=== PATIENT | female | born 1945 | race Caucasian/White ===

== ENCOUNTER 2016-11-29 14:14 | Outpatient (CLI) | payer MEDICARE | END 2016-11-29 14:15 | disposition home or self-care (01) | DX: M16.0 Bilateral primary osteoarthritis of hip (principal); M20.11 Hallux valgus (acquired), right foot; M20.12 Hallux valgus (acquired), left foot; M19.072 Primary osteoarthritis, left ankle and foot; M19.071 Primary osteoarthritis, right ankle and foot ==

== ENCOUNTER 2017-07-03 09:17 | Outpatient (CLI) | payer MEDICARE ==
[2017-07-03] MEDS ORDERED: BARIUM SULFATE 135 ML BOTTLE PO ONE (11:41)
[2017-07-03] MEDS ORDERED: BARIUM SULFATE 148 GM POWDER PO ONE (11:41)
--- NOTE | 2017-07-03 12:33 | XRAY Report ---
UPPER GI WITH SMALL BOWEL FOLLOW-THROUGH: 07/03/2017 CLINICAL INDICATION: Pain, gas. FINDINGS: Initial clerk travel reservations view of the abdomen demonstrates normal bowel gas pattern. Single and double contrast upper GI was performed, followed by small bowel follow through. The esophagus is normal in caliber. No esophageal ulceration, mass lesion, or stricturing is seen. Presbyesophagus is noted. There is a small hiatal hernia present, which produced gastroesophageal re flux throughout the course of the study. The stomach demonstrates a normal fold pattern. No gastric ulceration or mass lesion is present. The duodenal cap distends normally. The duodenal C-loop is u nremarkable. Contrast passes freely through jejunal and ileal loops, which demonstrate normal fold p atterns. No abnormal dilatation, separation, or stricturing of small bowel loops is seen. Oral cont rast reaches the ascending colon at 60 minutes. The terminal ileum appears unremarkable. IMPRESSION: 1. SLIDING HIATAL HERNIA, PRODUCING GASTROESOPHAGEAL REFLUX. 2. PRESBYESOPHAGUS. FLUOROSCOPY TIME: 2 minutes 59 seconds; 26 spot images obtained. 12:9:53 JOB #: [id number] EXT JOB #:[id number]
== END 2017-07-03 09:18 | disposition home or self-care (01) ==
LOC: DI 09:17
PROVIDERS: ATTEND Internal Medicine
DX: K22.8 Other specified diseases of esophagus (principal); K44.9 Diaphragmatic hernia without obstruction or gangrene
CPT/HCPCS: 74249; A9270

== ENCOUNTER 2017-11-06 11:27 | Outpatient (CLI) | payer MEDICARE ==
--- NOTE | 2017-11-07 09:08 | XRAY Report ---
EXAM: THREE VIEW BILATERAL FEET: 11/06/2017 CLINICAL INDICATION: Bilateral pain. COMPARISON: 11/29/2016. FINDINGS: AP, lateral, oblique views of the bilateral feet demonstrate stable bilateral hallux valgus and degenerative changes. There is no evidence of interval fracture or dislocation. No radiopaque foreign bodies appreciated in the soft tissues. IMPRESSION: STABLE BILATERAL HALLUX VALGUS AND DEGENERATIVE CHANGES. TD: 11/06/2017 16:13 [facility]
--- NOTE | 2017-11-07 09:10 | XRAY Report ---
EXAM: THREE VIEW BILATERAL HANDS: 11/06/2017 CLINICAL INDICATION: Bilateral hand pain. FINDINGS: AP, lateral, oblique views of the bilateral hands demonstrate mild arthritic changes of the metacarpophalangeal joints, right worse than left. There is no evidence of acute fracture or dislocation. No radiopaque foreign body is seen in the soft tissues. IMPRESSION: MILD ARTHRITIC CHANGES OF THE METACARPOPHALANGEAL JOINTS, RIGHT WORSE THAN LEFT, IN A PATTERN MORE COMPATIBLE WITH RHEUMATOID ARTHRITIS THAN OSTEOARTHRITIS. TD: 11/06/2017 16:16 [facility]
== END 2017-11-06 11:28 | disposition home or self-care (01) ==
LOC: DI.S 11:27
PROVIDERS: ATTEND Nurse Practitioner Family
DX: M79.641 Pain in right hand (principal); M79.671 Pain in right foot; M20.12 Hallux valgus (acquired), left foot; M20.11 Hallux valgus (acquired), right foot

== ENCOUNTER 2017-12-29 11:47 | Outpatient (CLI) | payer MEDICARE ==
--- NOTE | 2017-12-29 17:16 | XRAY Report ---
THREE VIEW BILATERAL ANKLES: 12/29/2017 CLINICAL INDICATION: Bilateral pain. FINDINGS: AP, lateral, and oblique views of the bilateral ankles demonstrate minimal osteoarthritis, with small osteophytes. There is no evidence of fracture or dislocation. No effusion is present. IMPRESSION: MINIMAL OSTEOARTHRITIS. TD: 12/29/2017 17:11
--- NOTE | 2017-12-29 17:16 | XRAY Report ---
TWO VIEW BILATERAL FEET: CLINICAL INDICATION: Pain. COMPARISON: 11/06/2017. FINDINGS: Frontal and lateral views of the bilateral feet demonstrate severe bilateral hallux valgus, stable from previous. There is no evidence of acute fracture. Osteoarthritic changes are stable. IMPRESSION: STABLE OSTEOARTHRITIS AND HALLUX VALGUS. TD: 12/29/2017 17:10
== END 2017-12-29 11:48 | disposition home or self-care (01) ==
LOC: DI 11:47
PROVIDERS: ATTEND Internal Medicine
DX: M19.072 Primary osteoarthritis, left ankle and foot (principal); M19.071 Primary osteoarthritis, right ankle and foot

== ENCOUNTER 2018-02-09 11:52 | Outpatient (CLI) | payer MEDICARE ==
[~2018-02-09 11:52] MED LIST: GADOBUTROL 10 MMOL/10 ML SYRINGE ONE
[2018-02-09 12:17] LABS: CREATININE 0.8 mg/dL (0.4-1.0)
[2018-02-09] MEDS ORDERED: GADOBUTROL 10 MMOL/10 ML SYRINGE IVP ONE (13:44)
--- NOTE | 2018-02-09 18:17 | MRI Report ---
EXAM: RIGHT ANKLE/HINDFOOT MRI WITHOUT AND WITH CONTRAST EXAM DATE: 02/09/2018 02:04 PM. CLINICAL HISTORY: Right ankle and right foot pain. COMPARISON: Right foot 2 views 12/29/2017. TECHNIQUE: Multiplanar, multisequence T1-weighted and fluid-sensitive sequences of the ankle before a nd after administration of intravenous contrast. IV contrast: 8.5 cc Gadavist. Other: None. FINDINGS: Bones: Edema is noted at the inferior lateral talus with the chondromalacia subtalar joint. Mild shea a tip of lateral malleolus. Possible small avulsed cortical fracture fragment lateral malleolus. Articular Cartilage: Focal chondromalacia posterior subtalar joint. Ligaments: The anterior talofibular ligament is intact. Tear of the proximal calcaneofibular ligament . The distal anterior tibia fibular ligament is intact. The deep and superficial deltoid and spring l igaments are intact. Anterior Tendons: The tibialis anterior, extensor hallucis longus, and extensor digitorum longus tend ons are unremarkable. Medial Tendons: Probable physiologic fluid posterior tibialis tendon sheath. Increased fluid proximal flexor digitorum longus tendon sheath 6 cm in length consistent with flexor digitorum longus tenosyn ovitis centered at the ankle joint and in proximity to the skin marker corresponding to the site of p ain. Lateral Tendons: The peroneus brevis and longus are unremarkable. Achilles Tendon: The Achilles tendon is unremarkable. Musculature: No edema or fatty atrophy. Other: Increased fluid dorsolateral talonavicular joint (image 20 series 701). Increased soft tissue or fluid and decreased fat signal tarsal sinus is suspicious for tarsal sinus syndrome (image 32 seri es 12,001). No plantar fasciitis. The subcutaneous tissues are unremarkable. No abscess or cellulitis . IMPRESSION: 1. Tenosynovitis flexor digitorum longus centered at the ankle joint corresponding to the area of int erest indicated by skin marker. 2. Tear of the proximal fibular calcaneal ligament with probable small avulsed lateral malleolus garrison ical fracture fragment. 3. 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 4. 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 [facility] MUSCULOSKELETAL RADIOLOGY SECTION Referring Provider Line: [phone] SITE ID: [id number]
== END 2018-02-09 11:53 | disposition home or self-care (01) ==
LOC: LAB 11:52
PROVIDERS: ATTEND Internal Medicine
DX: M65.871 Other synovitis and tenosynovitis, right ankle and foot (principal); S93.491A Sprain of other ligament of right ankle, initial encounter; M19.071 Primary osteoarthritis, right ankle and foot; R60.1 Generalized edema
CPT/HCPCS: 36415; 73720; 73723; 82565; A9585

== ENCOUNTER 2018-05-31 15:38 | Outpatient (CLI) | payer MEDICARE ==
--- NOTE | 2018-06-01 11:28 | XRAY Report ---
Procedure Date: 05/31/2018 Accession Number: [id number] / [id number] Procedure: XRS - Hips 3-4V BILAT CPT Code: FULL RESULT: EXAM: Hips 3-4V BILAT DATE: 05/31/2018 4:18 PM CLINICAL HISTORY: LOW BACK AND NECK Pain, pain IN RIGHT Hip, pelvic AN COMPARISON: Hip radiographs 11/29/2016. TECHNIQUE: 1 view of the pelvis and 1 view of each hip. FINDINGS: Bones: Normal. No fracture or bone lesion. Joints: The bilateral hip, pubis symphysis, and sacroiliac joints are preserved with the exception of bilateral narrowing of the femoral acetabular joint space consistent with mild bilateral osteoarthrosis. Soft Tissues: Normal. No soft tissue swelling. IMPRESSION: Mild bilateral hip osteoarthrosis. [facility]
--- NOTE | 2018-06-01 12:14 | XRAY Report ---
Procedure Date: 05/31/2018 Accession Number: [id number] / [id number] Procedure: XRS - Cervical Spine Complete CPT Code: FULL RESULT: EXAM: Cervical Spine Complete DATE: 05/31/2018 4:18 PM CLINICAL HISTORY: LOW BACK AND NECK PAIN,PAIN IN RIGHT HIP,PELVIC AN COMPARISON: None. TECHNIQUE: 5 views. FINDINGS: Alignment: Normal. No spondylolisthesis or scoliosis. Bones: The cervical vertebral bodies and posterior elements are well-visualized from the skull base through C7-T1. No fractures or bone lesions. Disks: Moderate degenerative changes, with disc space narrowing worst at C5-6. Facets: Mild facet arthropathy. Neural Foramina: Moderate osseous neuroforaminal narrowing, left worse than right. Soft Tissues: Normal. No prevertebral soft tissue swelling. The visualized lung apices are clear. IMPRESSION: Moderate degenerative changes, with left worse than right osseous neural foraminal narrowing. [facility]
--- NOTE | 2018-06-01 12:15 | XRAY Report ---
Procedure Date: 05/31/2018 Accession Number: [id number] / [id number] Procedure: XRS - Lumbar Spine 2 View CPT Code: FULL RESULT: EXAM: Lumbar Spine 2 View DATE: 05/31/2018 4:18 PM CLINICAL HISTORY: LOW BACK AND NECK PAIN,PAIN IN RIGHT HIP,PELVIC AN COMPARISON: None. TECHNIQUE: 3 views. FINDINGS: Alignment: Degenerative dextroscoliosis. Bones: Five hmg-ylv-gkyjpiz lumbar vertebral bodies are present. No fractures or bone lesions. Disks: Mild degenerative disc disease. Facets: Mild facet arthropathy. Sacroiliac Joints: Unremarkable. Soft Tissues: Normal. The visualized bowel gas pattern is normal. IMPRESSION: Degenerative changes, with mild dextroscoliosis. [facility]
== END 2018-05-31 15:39 | disposition home or self-care (01) ==
LOC: DI.S 15:38
PROVIDERS: ATTEND Internal Medicine
DX: M50.31 Other cervical disc degeneration, high cervical region (principal); M47.892 Other spondylosis, cervical region; M51.36 Other intervertebral disc degeneration, lumbar region; M47.896 Other spondylosis, lumbar region; M16.0 Bilateral primary osteoarthritis of hip; M41.86 Other forms of scoliosis, lumbar region
CPT/HCPCS: 72050; 72100; 73522

== ENCOUNTER 2019-02-26 09:58 | Outpatient (CLI) | payer MEDICARE ==
[2019-02-26 10:29] LABS: CREATININE 0.8 mg/dL (0.4-1.0)
[2019-02-26] MEDS ORDERED: IOVERSOL 320 100 ML VIAL IVP ONE ×2 (10:46→11:20)
--- NOTE | 2019-02-27 02:52 | CT Report ---
Reason: FAMILY HISTORY OF ISCHEMIC HEART DISEASE AND OTHER Procedure Date: 02/26/2019 Accession Number: [id number] / [id number] Procedure: CT - ANGIO HEAD W CPT Code: FULL RESULT: EXAM: CT ANGIOGRAM HEAD CT SCAN HEAD WITHOUT AND WITH CONTRAST EXAM DATE: 02/26/2019 11:12 AM CLINICAL HISTORY: Persistent headache. Family history of aneurysm. COMPARISON: None. TECHNIQUE: - CT Scan Head: Using a multidetector scanner, axial images were acquired from the foramen magnum to the skull vertex prior to and following contrast administration. - CT Angiogram: Using a multidetector scanner, high-resolution axial images were acquired from the skull base through vertex following rapid infusion of intravenous contrast. Reformats: Multiplanar MIP reformats were reconstructed. Nascet criteria used for stenosis measurement. IV Contrast: 80 mL Optiray 320. In accordance with CT protocol optimization, one or more of the following dose reduction techniques were utilized for this exam: automated exposure control, adjustment of mA and/or KV based on patient size, or use of iterative reconstructive technique. FINDINGS: NON-CONTRAST HEAD: Parenchyma: No intraparenchymal hemorrhage. No evidence of mass, midline shift, or CT findings of infarction. Mild patchy cerebral white matter hypodensity is present, like reflecting chronic microvascular ischemic changes in a patient of this age. Eric-white differentiation is distinct. Extraaxial Spaces: Normal for age. No subdural or epidural collections identified. Ventricles: There is mild generalized cerebral volume loss, in keeping with the patient's age. Sinuses and Orbits: Mild to moderate mucosal thickening is present in the maxillary sinuses, greater on the left. The orbits and mastoid sinuses are unremarkable. Mild bubbly secretions are also noted in the left maxillary sinus. Bones: No evidence of fracture or calvarial defect. POST-CONTRAST HEAD: No abnormal enhancement. There is normal contrast opacification in the dural venous sinuses. CT ANGIOGRAM HEAD: The internal carotid arteries are patent from the superior cervical to the supraclinoid portions. Minimal calcified plaque is noted in the bilateral carotid siphons without significant stenosis. There is an inferiorly directed outpouching arising from the supraclinoid left ICA just proximal to the takeoff of the anterior choroidal artery with a 2 mm neck and 1 mm dome (image 62, series 14) consistent with a blister-like ICA aneurysm. The bilateral A1, A2, M1, and M2 segments are patent. No aneurysm is seen in the expected location of the anterior communicating artery. However, there is a second outpouching directed anteriorly arising from the right MCA bifurcation with a 2 mm neck and 1 mm dome (image 117, series 6), consistent with a second aneurysm. In the posterior circulation, the bilateral V4 segments are patent. The right AICA/PICA variant is present. The left PICA and AICA are patent. The basilar artery is patent throughout its course to the terminus. There is normal contrast opacification in the superior cerebellar and posterior cerebral arteries. A right posterior communicating artery is present. A left posterior communicating artery is not seen. IMPRESSION: 1. No acute intracranial process or abnormal brain parenchymal enhancement. 2. Mild bubbly secretions are noted in the left maxillary sinus. Clinical correlation for acute sinusitis is recommended. 3. Patent dural venous sinuses. 4. Patent major intracranial arteries. 5. 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 6. 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 [facility]
== END 2019-02-26 09:59 | disposition home or self-care (01) ==
LOC: LAB 09:58 → DI 09:59
PROVIDERS: ATTEND Internal Medicine
DX: I67.1 Cerebral aneurysm, nonruptured (principal); Z82.49 Family history of ischemic heart disease and other diseases of the circulatory system
CPT/HCPCS: 36415; 70496; 82565; Q9967

== ENCOUNTER 2019-06-26 09:38 | Emergency (ER) | payer MEDICARE ==
[2019-06-26 09:43] VITALS: BP 168/94
--- NOTE | 2019-06-26 09:53 | ED Physician Documentation ---
History of Present Illness - Stated complaint Stated Complaint: SORE THROAT - Chief complaint Chief Complaint: Heent - History obtained from History obtained from: Patient - Additonal information Additional information: Patient is a 73-year-old female complaining of sore throat for the past 2 days. Patient reports pain with swallowing. Patient denies fever, chills, headache, sinus pain or pressure, nasal congestion or rhinorrhea, difficulty breathing or cough. Patient has tried Benadryl and gargles without much improvement. No other improving or worsening factors noted. Review of Systems Constitutional: denies: Fever Nose: denies: Rhinorrhea / runny nose, Congestion, Sinus pressure / pain Throat: reports: Sore throat. denies: Dental pain / toothache, Swollen tonsils Respiratory: denies: Dyspnea, Cough PD PAST MEDICAL HISTORY - Past Medical History Past Medical History: No - Past Surgical History Past Surgical History: No - Present Medications Home Medications: Ambulatory Orders Medication Instructions Recorded Confirmed Penicillin V Potassium 500 mg PO BID 10 Days tablet 06/26/19 - Allergies Allergies/Adverse Reactions: Allergies Allergy/AdvReac Type Severity Reaction Status Date / Time azithromycin Allergy Hives Verified 06/26/19 09:43 lactose AdvReac Unknown Verified 06/26/19 09:44 PD ED PE NORMAL - Vitals Vital signs reviewed: Yes - General General: Alert and oriented X 3, No acute distress - HEENT HEENT: Atraumatic, Moist mucous membranes, Dentition benign. No: Pharynx benign (Significant erythema and swelling to pharynx without tonsillar involvement, exudate, uvular deviation or other complication) - Neck Neck: Supple, no meningeal sign - Cardiac Cardiac: RRR, No murmur - Respiratory Respiratory: No respiratory distress, Clear bilaterally - Derm Derm: Normal color, Warm and dry, No rash - Extremities Extremities: No deformity, No tenderness to palpate - Neuro Neuro: Alert and oriented X 3, No motor deficit, No sensory deficit - Psych Psych: Normal mood, Normal affect Results - Vitals Vitals: Vital Signs - 24 hr 06/26/19 09:42 Temperature 36.5 C Heart Rate 95 Respiratory 18 Rate Blood Pressure 168/94 H O2 Saturation 98 Oxygen O2 Source Room air PD MEDICAL DECISION MAKING - ED course Complexity details: considered differential, d/w patient ED course: Patient presenting with changes of pharyngitis. Do not see evidence of uvu litis, uvular deviation, tonsillitis, peritonsillar abscess or have concern for retropharyngeal abscess.Do not have high suspicion for sinusitis, dental abscess, facial infection or other complication. No signs of systemic illness or sepsis. Discussed use of oral antibiotics, supportive cares, return precautions and follow-up. Patient voiced understanding and is comfortable with discharge plan. Departure - Departure Disposition: 01 Home, Self Care Clinical Impression: Acute bacterial pharyngitis Condition: Good Instructions: ED Strep Pharyngitis Poss Follow-Up: your,doctor [Other] - Within 3 Days Prescriptions: Penicillin V Potassium 500 mg PO BID 10 Days tablet Comments: May continue home medications as previously instructed. Please take antibiotics to treat pharyngitis. May also try salt water or Listerine gargles, ibuprofen, Tylenol, nasal washes. Follow-up with primary care physician in next 2 to 3 days and return to ED sooner if experience worsening symptoms or have other concerns.
== END 2019-06-26 10:18 | disposition home or self-care (01) ==
LOC: ED 09:38
DX: J02.8 Acute pharyngitis due to other specified organisms (principal)
CPT/HCPCS: 99282; 99284

== ENCOUNTER 2019-07-04 15:29 | Outpatient (CLI) | payer MEDICARE ==
--- NOTE | 2019-07-05 09:28 | XRAY Report ---
Reason: COUGH, R.05 Procedure Date: 07/04/2019 Accession Number: [id number] / [id number] Procedure: XRS - Chest 2 View X-Ray CPT Code: 43457 FULL RESULT: EXAM: CHEST RADIOGRAPHY EXAM DATE: 07/04/2019 03:40 PM. CLINICAL HISTORY: COUGH for 1 week, R. 05. COMPARISON: None. TECHNIQUE: 2 views. Patient was reportedly unable to take in a large respiration. FINDINGS: Lungs/Pleura: No focal opacities evident. No pleural effusion. No pneumothorax. Limited lung volumes. Mediastinum: Heart and mediastinal contours are unremarkable. Mild tortuosity of the ascending thoracic aorta. Other: Thoracic spine degenerative disease. IMPRESSION: No acute abnormality of the chest demonstrated. [facility]
== END 2019-07-04 15:30 | disposition home or self-care (01) ==
LOC: DI.S 15:29
PROVIDERS: ATTEND Internal Medicine
DX: R05 Cough (principal)
CPT/HCPCS: 71046

== ENCOUNTER 2019-09-06 08:50 | Outpatient (CLI) | payer MEDICARE ==
--- NOTE | 2019-09-06 12:43 | Nuclear Medicine Report ---
Reason: ABD PAIN, REFLUX Procedure Date: 09/06/2019 Accession Number: [id number] / [id number] Procedure: NM - Gastric Empty Small Bowel CPT Code: FULL RESULT: EXAM: GASTRIC EMPTYING STUDY EXAM DATE: 09/06/2019 09:11 AM. CLINICAL HISTORY: Abdominal pain, reflux. COMPARISON: None. TECHNIQUE: A standard meal was radiolabeled with 1 mCi Tc-99m sulfur colloid according to protocol. Following the p.o. administration of this meal, the patient underwent multiple static images over the abdomen from the anterior and posterior projections, at approximately 0, 1, and 2 hours following the ingestion of the meal. Region of interest analysis was employed, and percent emptied/percent remaining of the meal was calculated using background and delay corrections. FINDINGS: Calculations demonstrate: TIME (hours) Percent remaining. Normal values for percent remaining. 1 hour: 8 (30-90%) 2 hours: 0 (0-60%) 50% emptying was achieved at 33 minutes. IMPRESSION: Essentially normal gastric emptying study. [facility]
== END 2019-09-06 08:51 | disposition home or self-care (01) ==
LOC: DI 08:50
PROVIDERS: ATTEND Surgery
DX: K31.7 Polyp of stomach and duodenum (principal); R10.9 Unspecified abdominal pain; K21.9 Gastro-esophageal reflux disease without esophagitis
CPT/HCPCS: 78265

== ENCOUNTER 2020-05-27 16:38 | Outpatient (CLI) | payer MEDICARE | END 2020-05-27 16:39 | disposition home or self-care (01) | LOC: DI 16:38 | PROVIDERS: ATTEND Podiatrist | DX: Z53.9 Procedure and treatment not carried out, unspecified reason (principal) ==

== ENCOUNTER 2020-05-28 10:35 | Outpatient (CLI) | payer MEDICARE ==
--- NOTE | 2020-05-28 17:08 | XRAY Report ---
PROCEDURE: Foot 3 View BILAT INDICATIONS: BL FOOT PAIN, MID FOOT REGION TECHNIQUE: 3 views of the foot were acquired. COMPARISON: 12/29/2017 and 11/06/2017 FINDINGS: Bones: No fractures or dislocations. No suspicious bony lesions. Severe bilateral hallux valgus def ormities are stable compared to prior exams. Mild bilateral mid foot osteoarthritic changes. Soft tissues: No tibiotalar joint effusion. Achilles tendon appears normal. IMPRESSION: 1. Severe bilateral hallux valgus deformities. 2. Mild bilateral midfoot osteoarthritis. 3. No fracture. No acute osseous lesion. If there is continued clinical concern for pathology, then r epeat plain film radiographs (7-10 days) or advanced imaging (CT, MR, bone scan) should be considered for further evaluation. Reviewed by: Amparo Morris MD, PhD on 05/28/2020 5:06 PM PDT Approved by: Amparo Morris MD, PhD on 05/28/2020 5:06 PM PDT Station ID: [id number]
== END 2020-05-28 10:36 | disposition home or self-care (01) ==
LOC: DI.S 10:35
PROVIDERS: ATTEND Podiatrist
DX: M19.072 Primary osteoarthritis, left ankle and foot (principal); M19.071 Primary osteoarthritis, right ankle and foot; M20.12 Hallux valgus (acquired), left foot; M20.11 Hallux valgus (acquired), right foot

== ENCOUNTER 2020-07-03 12:43 | Outpatient (CLI) | payer MEDICARE | END 2020-07-03 12:44 | disposition home or self-care (01) | LOC: COV 12:43 | PROVIDERS: ATTEND Family Medicine | DX: R05 Cough (principal); M79.10 Myalgia, unspecified site; R53.83 Other fatigue; J02.9 Acute pharyngitis, unspecified; Z20.828 Contact with and (suspected) exposure to other viral communicable diseases ==

== ENCOUNTER 2020-09-30 08:04 | Day surgery (SDC) | payer MEDICARE ==
[2020-09-30] MEDS ORDERED: fentaNYL 250 MCG/5 ML VIAL IVP ONE (08:05)
[2020-09-30] MEDS ORDERED: MIDAZOLAM 2 MG/2 ML VIAL IVP ONE (08:05)
[2020-09-30] MEDS: LACTATED RINGERS 1,000 ML IV ONE (08:14)
[2020-09-30 10:14] VITALS: BP 112/57
== END 2020-09-30 08:05 | disposition home or self-care (01) ==
LOC: SDS 08:04
PROVIDERS: ATTEND Surgery
DX: Z12.11 Encounter for screening for malignant neoplasm of colon (principal); Z86.010 Personal history of colon polyps; K64.8 Other hemorrhoids; Z83.71 Family history of colonic polyps; Z87.891 Personal history of nicotine dependence; K21.9 Gastro-esophageal reflux disease without esophagitis
CPT/HCPCS: G0105; J3010; J7120

== ENCOUNTER 2020-12-28 20:43 | Emergency (ER) | payer MEDICARE ==
--- NOTE | 2020-12-28 21:19 | ED Physician Documentation ---
PD HPI UPPER EXT INJURY - Stated complaint Stated Complaint: LT THUMB LAC - Chief complaint Chief Complaint: Trauma Ext - History obtained from History obtained from: Patient - History of Present Illness Location: Left, Finger (dorsum proximal left thumb) Type of injury: Laceration (she was using box sorter and accidentally cut the top of her left thumb. Continued bleeding despite direct pressure on it. No weakness nor numbness.) Where injury occurred: Home Timing - onset: How many minutes ago (30) Timing - details: Abrupt onset, Still present Worsened by: Palpating Associated symptoms: No: Weakness, Numbness Similar symptoms before: Has not had sx before Review of Systems Constitutional: denies: Fever, Chills Nose: denies: Rhinorrhea / runny nose, Congestion Throat: denies: Sore throat Respiratory: denies: Cough Neurologic: denies: Focal weakness, Numbness PD PAST MEDICAL HISTORY - Past Medical History Cardiovascular: None Respiratory: Sleep apnea Endocrine/Autoimmune: None GI: GERD, Hiatal hernia, Colon polyps : None HEENT: None Psych: None Musculoskeletal: None Derm: None - Past Surgical History Past Surgical History: No General: Colonoscopy /CORRESPONDENCE CLERK: Hysterectomy Cardiovascular: Other - Present Medications Home Medications: Ambulatory Orders Medication Instructions Recorded Confirmed Esomeprazole Magnesium [Nexium] 20 mg PO DAILY 09/29/20 09/30/20 Famotidine [Pepcid] 20 mg PO ONCE 09/29/20 09/30/20 - Allergies Allergies/Adverse Reactions: Allergies Allergy/AdvReac Type Severity Reaction Status Date / Time azithromycin Allergy Hives Verified 12/28/20 20:52 lactose AdvReac Unknown Verified 12/28/20 20:52 - Social History Does the pt smoke?: No Smoking Status: Never smoker PD ED PE NORMAL - Vitals Vital signs reviewed: Yes - General General: Alert and oriented X 3, No acute distress, Well developed/nourished - Derm Derm: Normal color, Warm and dry - Extremities Extremities: Other (Left thumb dorsal proximal phalanx with 1.5 cm laceration to fatty tissue layer. No FB nor deep structures involved. Mild ongoing bleeding from the wound. ) - Neuro Neuro: No motor deficit, No sensory deficit Results - Vitals Vitals: Vital Signs - 24 hr 12/28/20 12/28/20 20:46 22:10 Temperature 36.3 C L Heart Rate 69 70 Respiratory 16 16 Rate Blood Pressure 147/60 H 142/88 H O2 Saturation 96 98 Oxygen O2 Source Room air Procedures - Laceration (location) left thumb Length in cm: 1.5 Wound type: Linear, Into subcut fat, Clean. No: Into muscle Neurovascular status: Sensory intact, Motor intact, Vascular intact Tendon involvement: Tendon intact Anesthesia: Lidocaine 1% with epi Wound preparation: Irrigated copiously NS, Wound explored, To the base. No: FB identified Skin layer closure: Nylon, Running, Size #-0 - enter number (4), Sutures - enter # (7) Other: Patient tolerated well, No complications, Neurovascular intact, Dressing applied, Tetanus booster given Departure - Departure Disposition: 01 Home, Self Care Clinical Impression: Thumb laceration Qualifiers: Encounter type: initial encounter Damage to nail status: without damage Foreign body presence: without foreign body Laterality: left Qualified Code(s): S61.012A - Laceration without foreign body of left thumb without damage to nail, initial encounter Condition: Stable Record reviewed to determine appropriate education?: Yes Instructions: ED Laceration Hand Follow-Up: Kisha Yanez MD [Primary Care Provider] - Comments: It is okay to wash and shower. Clean off the wound twice a day with soap and water, or peroxide and water. Apply some antibiotic ointment to it to keep it moist. Also to watch for signs of infection such as purulence, redness or increasing pain. Return to your primary care or the ER at the specified time for suture removal. Suture removal 8-10 days. Discharge Date/Time: 12/28/20 22:10
[2020-12-28] MEDS ORDERED: TETANUS/DIPHTHERIA/PERTUSSIS 0.5 ML SYRINGE IM ONE (21:40)
[2020-12-28 22:30] VITALS: BP 142/88
[2020-12-29] MEDS ORDERED: ACETAMINOPHEN 500 MG TABLET PO ONE (00:20)
== END 2020-12-28 22:10 | disposition home or self-care (01) ==
LOC: ED 20:43
DX: S61.012A Laceration without foreign body of left thumb without damage to nail, initial encounter (principal); W27.8XXA Contact with other nonpowered hand tool, initial encounter; Y93.89 Activity, other specified; Y92.009 Unspecified place in unspecified non-institutional (private) residence as the place of occurrence of the external cause; Z23 Encounter for immunization
CPT/HCPCS: 12001; 90471; 99282; 99283

== ENCOUNTER 2021-01-01 11:02 | Outpatient (CLI) | payer MEDICARE ==
--- NOTE | 2021-01-01 14:15 | XRAY Report ---
PROCEDURE: Knee Standing RT INDICATIONS: RIGHT KNEE PAIN TECHNIQUE: 4 views of the right knee, and 1 views of the left knee. COMPARISON: None. FINDINGS: Bones: No acute fractures or dislocations. No suspicious bony lesions. Joint spaces appear narrowe d to a mild to moderate degree at the medial compartment of the right knee, on weightbearing view. Th ere is slightly less medial compartment joint space narrowing on the left on the same frontal weightb earing view. No right-sided effusion or loose body found. Moderate narrowing of the medial facet of t he patellofemoral joint space is present on the right. With weightbearing. Soft tissues: No knee joint effusions. No suspicious soft tissue calcification. IMPRESSION: Right knee joint osteoarthritis is slightly greater than that on the left at the medial compartment, and moderate at the medial facet of the patellofemoral joint. No effusion or loose body found. No tra roe seen. Reviewed by: Byron Julian MD on 01/01/2021 2:14 PM PST Approved by: Byron Julian MD on 01/01/2021 2:14 PM PST Station ID: [id number]
== END 2021-01-01 23:59 | disposition home or self-care (01) ==
LOC: DI.N 11:02
PROVIDERS: ATTEND Orthopaedic Surgery
DX: M25.561 Pain in right knee (principal); M17.0 Bilateral primary osteoarthritis of knee

== ENCOUNTER 2021-06-15 08:00 | Outpatient (CLI) | payer MEDICARE ==
--- NOTE | 2021-06-15 11:33 | XRAY Report ---
PROCEDURE: Hip w/Pelvis 1V LT INDICATIONS: L HIP PX TECHNIQUE: AP pelvis with lateral view(s) of the left hip(s). COMPARISON: None. FINDINGS: Bones: No fractures or dislocations. Mild to moderate bilateral hip joint osteoarthritic changes ar e seen. No evidence of avascular necrosis of femoral head. Pelvic ring appears intact. No suspicious bony lesions. Degenerative disc disease in visualized lower lumbar spine is seen. Soft tissues: The visualized bowel gas pattern is normal. No suspicious soft tissue calcifications. IMPRESSION: Mild to moderate left hip joint osteoarthritis. No hip fracture or dislocation. No eviden ce of avascular necrosis. Reviewed by: Manjit Ram MD on 06/15/2021 11:32 AM PDT Approved by: Manjit Ram MD on 06/15/2021 11:32 AM PDT Station ID: [id number]
--- NOTE | 2021-06-15 11:34 | XRAY Report ---
PROCEDURE: Foot 3 View RT INDICATIONS: R FOOT PX TECHNIQUE: 3 views of the foot were acquired. COMPARISON: 05/28/2020, 02/09/2018, to 918 FINDINGS: Bones: Severe bilateral hallux valgus deformity is again seen. Significant pes planus in right foot is again noted. Calcaneal pitch angle measures 11.6 degrees. Mild to moderate osteoarthritic changes throughout right foot is seen. No fractures or dislocations. No suspicious bony lesions. Soft tissues: No tibiotalar joint effusion. Achilles tendon appears normal. IMPRESSION: Severe bilateral hallux valgus deformity. Pes planus in right foot. 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 No fracture or dislocation. Reviewed by: Manjit Ram MD on 06/15/2021 11:33 AM PDT Approved by: Manjit Ram MD on 06/15/2021 11:33 AM PDT Station ID: [id number]
--- NOTE | 2021-06-15 11:46 | XRAY Report ---
PROCEDURE: Ankle 3 View RT INDICATIONS: R ANKLE PX TECHNIQUE: 3 views of the ankle were acquired. COMPARISON: None FINDINGS: Bones: No fractures or dislocations. Ankle mortise is normally aligned. Mild ankle and hindfoot kaleigh nt osteoarthritis is seen. Pes planus is noted. No suspicious bony lesions. Soft tissues: No tibiotalar joint effusion. Achilles tendon appears normal. IMPRESSION: No ankle fracture or dislocation. Mild ankle and hindfoot joint osteoarthritis and right -sided pes planus. Reviewed by: Manjit Ram MD on 06/15/2021 11:45 AM PDT Approved by: Manjit Ram MD on 06/15/2021 11:45 AM PDT Station ID: [id number]
== END 2021-06-15 23:59 | disposition home or self-care (01) ==
LOC: DI.N 08:00
PROVIDERS: ATTEND Orthopaedic Surgery
DX: M16.12 Unilateral primary osteoarthritis, left hip (principal); M19.071 Primary osteoarthritis, right ankle and foot; M21.41 Flat foot [pes planus] (acquired), right foot; M20.12 Hallux valgus (acquired), left foot; M20.11 Hallux valgus (acquired), right foot

== ENCOUNTER 2021-12-02 08:00 | Outpatient (CLI) | payer MEDICARE ==
[2021-12-02 15:56] LABS: BASOPHILS % (AUTO) 0.5 %; EOSINOPHILS # (AUTO) 0.1 10^3/uL (0.0-0.7); EOSINOPHILS % (AUTO) 2.3 %; HCT - HEMATOCRIT 42.1 % (37.0-47.0); HGB - HEMOGLOBIN 13.7 g/dL (12.0-16.0); LYMPHOCYTES % (AUTO) 33.4 %; MEAN CORPUSCULAR HEMOGLOBIN 31.1 pg (27.0-31.0); MEAN CORPUSCULAR HGB CONC 32.5 g/dL (32.0-36.0); MEAN CORPUSCULAR VOLUME 95.7 fL (81.0-99.0); MEAN PLATELET VOLUME 9.9 fL (7.9-10.8); MONOCYTES # (AUTO) 0.4 10^3/uL (0.0-1.0); MONOCYTES % (AUTO) 6.6 %; NEUTROPHILS # (AUTO) 3.4 10^3/uL (1.5-6.6); PLT - PLATELET COUNT 309 10^3/uL (130-450); RED CELL DISTRIBUTION WIDTH 13.4 % (12.0-15.0)
[2021-12-02 16:12] LABS: ALBUMIN 3.9 g/dL (3.2-5.5); ALBUMIN/GLOBULIN RATIO 1.3 (1.0-2.2); ALKALINE PHOSPHATASE 88 IU/L (42-121); ALT ALANINE AMINOTRANSFERASE 18 IU/L (10-60); AST ASPARTATE AMINOTRANSFERASE 17 IU/L (10-42); BILIRUBIN,TOTAL 0.8 mg/dL (0.2-1.0); BUN - BLOOD UREA NITROGEN 16 mg/dL (6-20); CALCIUM 9.6 mg/dL (8.5-10.3); CARBON DIOXIDE - CO2 29 mmol/L (21-32); CHLORIDE 97 mmol/L (101-111); CHOL/HDL RATIO 3.9 (<4.4); CHOLESTEROL 217 mg/dL; CREATININE 0.8 mg/dL (0.4-1.0); GFR - MDRD 69 (>89); GLUCOSE 93 mg/dL (70-100); HDL CHOLESTEROL 55 mg/dL; LDL CHOLESTEROL,CALCULATED 135 mg/dL; LDL/HDL RATIO 2.5 (<4.4); POTASSIUM 4.1 mmol/L (3.5-5.0); SODIUM 135 mmol/L (135-145); TOTAL PROTEIN 6.9 g/dL (6.7-8.2); TRIGLYCERIDES 137 mg/dL; VLDL CHOLESTEROL 27 mg/dL
== END 2021-12-02 23:59 ==
LOC: LAB 08:00
PROVIDERS: ATTEND Internal Medicine
DX: Z00.00 Encounter for general adult medical examination without abnormal findings (principal); K31.7 Polyp of stomach and duodenum; K21.9 Gastro-esophageal reflux disease without esophagitis; C80.1 Malignant (primary) neoplasm, unspecified; Z86.010 Personal history of colon polyps; E73.9 Lactose intolerance, unspecified
CPT/HCPCS: 36415; 80053; 80061; 82306; 83721; 84443; 85025

== ENCOUNTER 2022-04-20 09:48 | Outpatient (CLI) | payer MEDICARE ==
--- NOTE | 2022-04-22 07:54 | Mammography Report ---
BILATERAL DIGITAL SCREENING MAMMOGRAM 3D/2D WITH EXAGGERATED CC: 04/20/2022 CLINICAL: Routine screening. Family history of breast cancer. Comparison is made to exams dated: 03/16/2016 mammogram and 08/18/2014 mammogram - [facility]. There are scattered fibroglandular elements in both breasts. No significant masses, calcifications, or other findings are seen in either breast. There has been no significant interval change. IMPRESSION: NEGATIVE There is no mammographic evidence of malignancy. A 1 year screening mammogram is recommended. This exam was interpreted at Station ID: [id number]. NOTE: For mammograms, a report in lay terms will be sent to the patient. Approximately 15% of breast malignancies will not be visualized mammographically. In the management of a palpable breast mass, a negative mammogram must not discourage biopsy of a clinically suspicious lesion. Electronically Signed By: Jose Avila M.D. aty/penrad:04/20/2022 11:00:53 ACR BI-RADS Category 1: Negative 3341F PARENCHYMAL PATTERN: (A) - The breast(s) demonstrate(s) scattered fibroglandular densities. BI-RADS CATEGORY: (1) - 1 RECOMMENDATION: (ANNUAL) - Recommend routine annual screening mammography. [id number] 1 year screening LATERALITY: (B)
== END 2022-04-20 09:49 | disposition home or self-care (01) ==
LOC: DI.S 09:48
PROVIDERS: ATTEND Internal Medicine
DX: Z12.31 Encounter for screening mammogram for malignant neoplasm of breast (principal); Z80.3 Family history of malignant neoplasm of breast

== ENCOUNTER 2023-01-04 15:22 | Outpatient (CLI) | payer MEDICARE ==
--- NOTE | 2023-01-04 16:08 | XRAY Report ---
PROCEDURE: Hip w/Pelvis 2-3V LT INDICATIONS: LEFT HIP PAIN TECHNIQUE: AP pelvis with lateral view(s) of the left hip(s). COMPARISON: None. FINDINGS: Bones: No fractures or dislocations. Pelvic ring appears intact. No suspicious bony lesions. Soft tissues: The visualized bowel gas pattern is normal. No suspicious soft tissue calcifications. IMPRESSION: No acute fracture. No osseous lesion. If symptoms and/or clinical suspicion for patholog y continue, further assessment with repeat plain films, or advanced imaging (e.g., CT, MRI, or bone s can) is recommended for further assessment. Reviewed by: Gabe Fox MD on 01/04/2023 4:06 PM [facility] Approved by: Gabe Fox MD on 01/04/2023 4:06 PM PST Station ID: [id number]
== END 2023-01-04 15:23 | disposition home or self-care (01) ==
LOC: DI.S 15:22
PROVIDERS: ATTEND Internal Medicine
DX: M25.552 Pain in left hip (principal)

== ENCOUNTER 2023-05-12 09:27 | Outpatient (CLI) | payer MEDICARE ==
--- NOTE | 2023-05-15 09:59 | Mammography Report ---
BILATERAL DIGITAL DIAGNOSTIC MAMMOGRAM 3D/2D: 05/12/2023 CLINICAL: Occasional right breast pain. Due for bilateral. Comparison is made to exams dated: 04/20/2022 mammogram, 03/16/2016 mammogram, and 08/18/2014 mammogram - [facility]. There are scattered areas of fibroglandular density in both breasts (category b / 25%-50% glandular t issue). No significant masses, calcifications, or other findings are seen in either breast. IMPRESSION: INCOMPLETE: NEEDS ADDITIONAL IMAGING EVALUATION There is no abnormality seen in the right breast to correspond with the area of clinical concern and pain indicated by square marker in the lower outer quadrant, however, an ultrasound is recommended fo r further evaluation and is scheduled to immediately follow this examination. Based on the Tyrer Cuzick model (a risk assessment model) the patients lifetime risk is 2.2% and her 10 year risk is 0.0%. According to the ACR, ACS, and NCCN guidelines, an annual breast MRI exam cale g with mammogram is recommended if the patients lifetime risk is 20% or greater. This exam was interpreted at Station ID: [id number]. NOTE: For mammograms, a report in lay terms will be sent to the patient. Approximately 15% of breast malignancies will not be visualized mammographically. In the management of a palpable breast mass, a negative mammogram must not discourage biopsy of a clinically suspicious lesion. Electronically Signed By: Jose Avila M.D. aty/:05/12/2023 10:20:49 ACR BI-RADS Category 0: Incomplete 3340F PARENCHYMAL PATTERN: (A) - The breast(s) demonstrate(s) scattered fibroglandular densities. BI-RADS CATEGORY: (0) - 0 Ultrasound [id number] Immediate follow-up LATERALITY: (R)
--- NOTE | 2023-05-15 10:00 | Ultrasound Report ---
LIMITED ULTRASOUND OF RIGHT BREAST: 05/12/2023 CLINICAL: Occasional right breast pain. Comparison is made to exams dated: 04/20/2022 mammogram, 03/16/2016 mammogram, 08/18/2014 mammogram, 02/18 mammogram, and 05/12/2023 mammogram - [facility]. Real-time ultrasound of the right breast 8 o'clock region was performed. Eric scale images of the re al-time examination were reviewed. No significant abnormalities were seen sonographically in the right breast. IMPRESSION: NEGATIVE There is no sonographic evidence of malignancy. There is no abnormality seen in the right breast to correspond with the area of clinical concern and patient directed area of pain, however, recommend clinical follow up for persistent or worsening sym ptoms, or development of any clinically suspicious findings. A 1 year screening mammogram is recommended. Findings and recommendations were conveyed to the patient during today's evaluation. This exam was interpreted at Station ID: [id number]. Electronically Signed By: Jose Avila M.D. aty/:05/12/2023 13:19:26 Ultrasound BI-RADS: 1 Negative BI-RADS CATEGORY: (1) - 1 Mammogram [id number] 1 year screening LATERALITY: (B)
== END 2023-05-12 09:28 | disposition home or self-care (01) ==
LOC: DI 09:27
PROVIDERS: ATTEND Internal Medicine
DX: N64.4 Mastodynia (principal); R92.8 Other abnormal and inconclusive findings on diagnostic imaging of breast

== ENCOUNTER 2023-06-14 11:51 | Outpatient (CLI) | payer MEDICARE ==
--- NOTE | 2023-06-14 13:19 | XRAY Report ---
PROCEDURE: Cervical Spine Comp w/Flex/Ext INDICATIONS: NECK DISORDER TECHNIQUE: 7 views of the cervical spine were acquired. COMPARISON: None. FINDINGS: Bones: No fractures or dislocations to the T1 level. Straightening of normal cervical lordosis. Ther e is minimal anterolisthesis of C3 on C4 and minimal retrolisthesis of C4 on C5. No suspicious bony l esions. There is normal range of motion between flexion and extension, with preserved bony alignment . There are multilevel degenerative changes of the cervical spine with anterior osteophytosis, disc h eight loss, facet and uncovertebral arthropathy. On oblique views, there is neuroforaminal narrowing, worse involving the lower cervical spine on the right. Soft tissues: Prevertebral soft tissues are normal in thickness. IMPRESSION: Multilevel degenerative changes of the cervical spine as above. Normal range of motion w ith preserved alignment. Neuroforaminal narrowing, worse involving the lower cervical spine on the ri ght. Reviewed by: Juan Jose Ortega MD on 06/14/2023 1:18 PM PDT Approved by: Juan Jose Ortega MD on 06/14/2023 1:18 PM PDT Station ID: [id number]
== END 2023-06-14 11:52 | disposition home or self-care (01) ==
LOC: DI.S 11:51
PROVIDERS: ATTEND Internal Medicine
DX: M47.812 Spondylosis without myelopathy or radiculopathy, cervical region (principal); M48.02 Spinal stenosis, cervical region

== ENCOUNTER 2023-07-21 08:00 | Outpatient (CLI) | payer MEDICARE | END 2023-07-21 23:59 | disposition home or self-care (01) | LOC: LAB.S 08:00 | PROVIDERS: ATTEND Physician Assistant | DX: R30.0 Dysuria (principal) | CPT/HCPCS: 87086; 87181 ==

== ENCOUNTER 2023-09-01 08:00 | Outpatient (CLI) | payer MEDICARE ==
[2023-09-02 12:31] LABS: BACTERIAL VAGINOSIS DNA NEGATIVE (NEGATIVE); CANDIDA GLABRATA DNA NEGATIVE (NEGATIVE); CANDIDA GROUP DNA NEGATIVE (NEGATIVE); CANDIDA KRUSEI DNA NEGATIVE (NEGATIVE); TRICHOMONAS VAGINALIS DNA NEGATIVE (NEGATIVE)
== END 2023-09-01 23:59 | disposition home or self-care (01) ==
LOC: LAB.S 08:00
PROVIDERS: ATTEND Physician Assistant
DX: N76.0 Acute vaginitis (principal); R30.0 Dysuria
CPT/HCPCS: 81514; 87086; 87181

== ENCOUNTER 2024-06-06 07:00 | Day surgery (SDC) | payer MEDICARE ==
[2024-06-06] MEDS: CYCLOPENTOLATE 1% OPHTH DROPS 2 ML ONE (07:33)
[2024-06-06] MEDS: PROPARACAINE 0.5% OPHTH DROPS 15 ML ONE (07:33)
[2024-06-06] MEDS: KETOROLAC 0.45% OPHTH DROPS ONE (07:33)
[2024-06-06] MEDS: PHENYLEPHRINE 2.5% OPHTH 2 ML DROPS ONE (07:34)
[2024-06-06] MEDS ORDERED: TIMOLOL 0.5% OPHTH DROPS ONE (07:49)
[2024-06-06] MEDS ORDERED: BRIMONIDINE 0.2% OPHTH DROPS 5 ML ONE (07:49)
[2024-06-06] MEDS ORDERED: EPINEPHrine 1 MG/ML AMP ONE (07:49)
[2024-06-06] MEDS ORDERED: TRIAMCIN/MOXIFLOX OPHTHALMIC 0.6 ML VIAL IO ONE (07:49)
[2024-06-06] MEDS ORDERED: BSS/LIDOCAINE/EPINEPHRINE 1 ML VIAL ONE (07:50)
[2024-06-06] MEDS ORDERED: MIDAZOLAM 2 MG/2 ML VIAL ONE (07:54)
--- NOTE | 2024-06-06 07:55 | ANESTHESIA ---
Pre-Anesthesia VS, & Labs - Diagnosis R cataract - Procedure R cataract extraction with IOL Vital Signs: Temp Pulse Resp BP Pulse Ox O2 Flow Rate 36.3 C L 59 L 18 163/83 H 100 06/06/24 07:35 06/06/24 07:35 06/06/24 07:35 06/06/24 07:35 06/06/24 07:35 Height: 5 ft 6 in Weight (kg): 78.3 kg Body Mass Index: 27.8 BMI Classification: Overweight - NPO >8 hours - Is Patient ?: No - Lab Results Lab results reviewed: Yes Home Medications and Allergies Home Medications: Ambulatory Orders Omeprazole 20 mg ORAL DAILY 06/05/24 Famotidine [Pepcid] 20 mg PO ONCE 09/29/20 Omeprazole 20 mg ORAL DAILY 06/05/24 Allergies/Adverse Reactions: Allergies Allergy/AdvReac Type Severity Reaction Status Date / Time azithromycin Allergy Hives Verified 06/06/24 07:42 lactose AdvReac Unknown Verified 06/06/24 07:42 morphine AdvReac Itching Verified 06/06/24 07:42 Anes History & Medical History - Anesthetic History Anesthesia Complications: reports: No previous complications Family history of Anesthesia Complications: Denies Family history of Malignant Hyperthermia: Denies - Medical History Cardiovascular: reports: None Pulmonary: reports: None Gastrointestinal: reports: GERD Urinary: reports: None Musculoskeletal: reports: Osteoarthritis Endocrine/Autoimmune: reports: Other Skin: reports: Other Smoking Status: Never smoker - Surgical History General: reports: Colonoscopy Cardiothoracic: reports: Other Gynecologic: reports: Hysterectomy Exam General: Alert, Oriented x3, Cooperative Dental: WNL Mouth Openin Fingerbreadth Neck Mobility: Normal Mallampati classification: II Thyromental Distance: 4-6 cm Respiratory: Lungs clear, Normal breath sounds, No respiratory distress Cardiovascular: Regular rate Neurological: Normal speech Mental/Cognitive Status: Alert/Oriented X3, Normal for patient Cognitive Status: Within normal limits Plan Anesthesia Type: MAC Consent for Procedure(s) Verified and Reviewed: Yes Code Status: Attempt Resuscitation ASA classification: 2-Mild systemic disease Is this case an emergency?: No
[2024-06-06] MEDS: EPINEPHrine 1 MG/ML AMP IR ONE (08:11)
[2024-06-06] MEDS: BRIMONIDINE 0.2% OPHTH DROPS 5 ML OPTH ONE (08:11)
[2024-06-06] MEDS: BSS/LIDOCAINE/EPINEPHRINE 1 ML SYRINGE IO ONE (08:12)
[2024-06-06] MEDS: TRIAMCIN/MOXIFLOX OPHTHALMIC 0.6 ML VIAL IO ONE (08:12)
[2024-06-06] MEDS: PROPARACAINE 0.5% OPHTH DROPS 15 ML RIGHTEYE ONE (08:12)
[2024-06-06] MEDS: TIMOLOL 0.5% OPHTH DROPS OPTH ONE (08:12)
[2024-06-06] MEDS: VANCOMYCIN OPHTH (TOPICAL) 10 MG/ML SYRINGE TOP ONE (08:12)
[2024-06-06] MEDS: LACTATED RINGERS 800 ML IV ONE ×2 (08:23→09:03)
--- NOTE | 2024-06-06 08:31 | ANESTHESIA POST OP EVALUATION ---
Anesthesia Post Eval - Post Anesthesia Eval Vitals: Last Vital Signs Temp 36.3 C L 06/06/24 07:35 Pulse 59 L 06/06/24 07:35 Resp 18 06/06/24 07:35 BP 163/83 H 06/06/24 07:35 Pulse Ox 100 06/06/24 07:35 O2 Flow Rate CV Function Including HR & BP: Stable Pain Control: Satisfactory Nausea & Vomiting: Negative Mental Status: Baseline Respiratory Status: Airway Patent Hydration Status: Satisfactory Anesthesia Complications: None
--- NOTE | 2024-06-06 08:36 | OPERATIVE REPORT ---
Operative Report - Other Other Information/Narrative: Date of Surgery: 06/06/24 Preop Dx: Visually significant cataract right eye. This was the first cataract surgery. Postop Dx: Same Procedure: Phacoemulsification with posterior chamber intraocular lens implant right eye Surgeon: Dr. Sameer Mckay Anesthesia: Monitored anesthesia care Complications: None Operative Indications: This is a 78-year-old F with progressive vision loss in the right eye due to 2+ nuclear sclerotic and 2-3+ cortical cataract. Best corrected visual acuity was 20/30 with glare to 20/125 vision in the right eye. Indications for surgery were: - Overall decrease in vision - Difficulty seeing words on a computer screen - Difficulty reading - Difficulty driving in low light or at night - Difficulty driving at night because of headlights from other vehicles - Difficulty with glare or bright lights in any situation The patient was consented at length concerning the risks and benefits of cataract surgery after which the patient expressed a desire to proceed with surgery. Operative Procedure: The patient was taken into OR#3 and placed under monitored anesthesia care. A surgical time-out was conducted confirming correct patient, correct procedure, and correct surgical site. The patient was given topical anesthesia and then prepped and draped in the usual sterile fashion. The eye was entered at the 6 and 3 oclock positions. Intracameral Shugarcaine was injected into the anterior chamber followed by a dispersive viscoelastic. A continuous-tear curvilinear capsulorhexis was performed. The nucleus was hydrodissected and phacoemulsified. The cortex was evacuated using automated infusion and aspiration. A cohesive viscoelastic was injected into the capsular bag and a 22.0 diopter intraocular lens was inserted into the bag. Infusion and aspiration were used to evacuate the viscoelastic materials from the eye. The wounds were hydrated and the eye inflated to physiologic pressure using balanced salt solution. Approximately 0.25ml of a mixture of triamcinolone and moxifloxacin was injected trans-sclerally into the vitreous in the inferotemporal quadrant using a 30 gauge cannula. An additional 0.25ml of a mixture of triamcinolone and moxifloxacin was injected subconjunctivally in the superior quadrant for infection and inflammation prophylaxis. Wound integrity wa s checked with Weck-Gisela sponges. The patient was taken from the operating room in good condition and given post-op instructions.
[2024-06-06 08:48] VITALS: BP 132/76; O2SAT 99
== END 2024-06-06 07:01 | disposition home or self-care (01) ==
LOC: SDS 07:00
PROVIDERS: ATTEND Ophthalmology
DX: H25.811 Combined forms of age-related cataract, right eye (principal)
CPT/HCPCS: 66984; A9270; J3490; J7120

== ENCOUNTER 2024-07-11 14:07 | Outpatient (CLI) | payer MEDICARE ==
--- NOTE | 2024-07-11 17:07 | XRAY Report ---
PROCEDURE: Foot 1-2V LT INDICATIONS: PAIN IN LEFT FOOT TECHNIQUE: 2 views of the foot were acquired. COMPARISON: None. FINDINGS: Bones: No fractures or dislocations. No suspicious bony lesions. Marked hallux valgus with bony ca llus formation. Midfoot joint space or with osteophytosis. Soft tissues: No tibiotalar joint effusion. Achilles tendon appears normal. IMPRESSION: Moderate midfoot osteoarthritis. Marked hallux valgus. Reviewed by: Fernando Summers MD on 07/11/2024 5:06 PM PDT Approved by: Fernando Summers MD on 07/11/2024 5:06 PM PDT Station ID: [id number]
== END 2024-07-11 14:08 | disposition home or self-care (01) ==
LOC: DI 14:07
PROVIDERS: ATTEND Physician Assistant Medical
DX: M19.072 Primary osteoarthritis, left ankle and foot (principal); M20.12 Hallux valgus (acquired), left foot

== ENCOUNTER 2024-07-27 08:00 | Outpatient (CLI) | payer MEDICARE | END 2024-07-27 23:59 | disposition home or self-care (01) | LOC: LAB.N 08:00 | PROVIDERS: ATTEND Registered Nurse | DX: N30.00 Acute cystitis without hematuria (principal) | CPT/HCPCS: 87086; 87181 ==